=== PATIENT | male | born 1940 | race Caucasian/White ===

== ENCOUNTER 2018-06-06 20:49 | Emergency (ER) | payer OTHER ==
[~2018-06-06] VITALS: Ht 170.2 cm; Wt 88.5 kg
--- NOTE | 2018-06-06 21:39 | NUR ---
TO [facility]ED [facility] BIB EMS C/O FOREHEAD LACERATIONS S/P MECHANICAL FALL, NO LOC. (+) ETOH SMELL. PLACE PT ON CARDIAC MONITORING, CONTINUOUS POX, O2@2L/NC. PENDING ER MD BUSH.
[2018-06-06] MEDS ORDERED: LIDOCAINE 1% INJ 50 ML MDV IJ ONE (23:24)
--- NOTE | 2018-06-07 00:26 | NUR ---
SPOKE TO [facility] TO TRANSPORT PT BACK TO FACILITY, WAITING FOR MD CALL BACK/ TRANSFER INFO.
--- NOTE | 2018-06-07 00:49 | NUR ---
pt asleep, no acute distress noted, resp even and unlabored. call light within reach. will continue to monitor pt closely.
[2018-06-07 02:14] VITALS: BP 143/64
--- NOTE | 2018-06-07 02:15 | NUR ---
transport at bedside report given to [facility] transport.
== END 2018-06-07 02:16 | disposition home or self-care (01) ==
LOC: ER 20:54
DX: S01.81XA Laceration without foreign body of other part of head, initial encounter (principal); F10.20 Alcohol dependence, uncomplicated; I10 Essential (primary) hypertension; N40.0 Benign prostatic hyperplasia without lower urinary tract symptoms; E78.5 Hyperlipidemia, unspecified; Y90.9 Presence of alcohol in blood, level not specified; W18.09XA Striking against other object with subsequent fall, initial encounter; Y93.89 Activity, other specified; Y92.89 Other specified places as the place of occurrence of the external cause; Y99.8 Other external cause status
CPT/HCPCS: 12011; 70450; 72125; 99285; A4606; A6402; J3490